=== PATIENT | male | born 1995 | race Caucasian/White ===

== ENCOUNTER 2024-08-07 23:31 | Emergency (ER) | payer OTHER ==
[~2024-08-07] VITALS: Ht 182.9 cm; Wt 98.2 kg
[2024-08-08 00:23] VITALS: BP 131/80; PULSE 78; RESP 18; TEMP 98.2; O2SAT 96
[2024-08-08] MEDS: ACETAMINOPHEN 325 MG TABLET PO ONE (02:23)
[2024-08-08] MEDS: OxyCODONE HCL 5 MG IR TABLET PO ONE (02:23)
[2024-08-08] MEDS: IBUPROFEN 400 MG TABLET PO ONE (02:23)
== END 2024-08-08 02:26 ==
LOC: EMS 23:31
DX: S02.2XXA Fracture of nasal bones, initial encounter for closed fracture (principal); S01.01XA Laceration without foreign body of scalp, initial encounter; F12.90 Cannabis use, unspecified, uncomplicated; F17.210 Nicotine dependence, cigarettes, uncomplicated; F15.90 Other stimulant use, unspecified, uncomplicated; W18.2XXA Fall in (into) shower or empty bathtub, initial encounter; Y93.89 Activity, other specified; Y92.89 Other specified places as the place of occurrence of the external cause; Y99.8 Other external cause status
CPT/HCPCS: 70450; 70486; 99284